=== PATIENT | male | born 1990 | race Caucasian/White ===

== ENCOUNTER → 2021-08-21 11:37 | Outpatient (BNVA) | payer SELFPAY | PROVIDERS: Visit Provider Nurse Practitioner Family | DX: Z20.822 Contact with and (suspected) exposure to COVID-19 (principal) | CPT/HCPCS: 87635 ==

== ENCOUNTER → 2021-08-30 13:04 | Outpatient (BNVA) | payer BC, SELFPAY | PROVIDERS: Visit Provider Family Medicine | DX: Z20.822 Contact with and (suspected) exposure to COVID-19 (principal); U07.1 COVID-19 | CPT/HCPCS: 87635 ==

== ENCOUNTER 2021-09-03 07:52 | Emergency (ER) | payer BC, SELFPAY ==
[2021-09-03 08:15] VITALS: BP 147/91; PULSE 96; RESP 20; TEMP 36.7; O2SAT 97; BMI 25.7
[2021-09-03 08:32] VITALS: BP 147/91; PULSE 96; RESP 20; TEMP 36.7; O2SAT 97
--- NOTE | 2021-09-03 08:32 | W.ED.SKABFB ---
HPI - Skin/Abscess/Foreign Bdy General: Chief complaint: Allergic Reaction Stated complaint: COVID + Breaking out in a rash Time Seen by Provider: 09/03/21 07:59 History of Present Illness: Patient is a 30-year-old male comes to the ED with a pruritic rash. Patient was diagnosed with COVID-19 4 days ago. His Covid symptoms are improving. His main complaint is 2 days ago he started getting a pruritic rash that spread all over his body. Patient says approximately 3 days ago he took aspirin for the first time. His rash started within 24 hours after taking the aspirin. He said the rash first started on right thigh and then has spread throughout the rest of his body. Rash is on both legs arms torso neck and face. Patient says that his father had a similar reaction when he took aspirin. Denies any lip or tongue swelling or any shortness of breath. Denies nausea/vomiting or diarrhea. Associated symptoms: Deny chills, fever(s), nausea or vomiting Review of Systems Const: Denies: fever(s), chills or fatigue Eyes: Denies: change in vision or eye discomfort ENMT: Denies: throat pain, odynophagia, nasal discharge or nasal congestion Card: Denies: chest pain, palpitations, edema, swelling of feet/ankles, dyspnea on exertion or orthopnea Resp: Denies: dyspnea, productive cough or non-productive cough GI: Denies: abdominal pain, nausea, vomiting, diarrhea, constipation or hematochezia : Denies: flank pain, difficulty urinating, dysuria or hematuria Musc: Denies: neck pain, back pain or extremity swelling Skin/Breast: Reports: rash and pruritus; Denies: new lesions Neuro: Denies: headache(s), numbness in extremities or weakness in extremities PFS ED PFSH: Medical History No pertinent past medical history Surgical History No pertinent past surgical history Social History Smoking and tobacco status: never smoked Physical Exam Const: COMMON NORMALS: no acute distress, patient oriented x3 and alert GENERAL APPEARANCE: cooperative and comfortable HENMT: COMMON NORMALS: normocephalic HEAD & SCALP: normocephalic MOUTH: Normal oral and palatal mucosa present, lip normal and tongue normal THROAT: posterior oropharynx normal and uvula midline Neck/C-Spine: COMMON NORMALS: supple GENERAL: Yes normal visual inspection Resp: COMMON NORMALS: normal respiratory effort, No retractions, No use of accessory muscles and clear to auscultation bilaterally AUSCULTATION: clear to auscultation bilaterally Cardio: COMMON NORMALS: regular rate, regular rhythm, S1 normal heart sound present, S2 normal heart sound present, No gallops present (Cardio), No clicks present (Cardio), No murmurs present (Cardio) and Peripheral pulses 2+ throughout RATE: regular rate RHYTHM: regular rhythm HEART SOUNDS: S1 normal heart sound present and S2 normal heart sound present PERIPHERAL PULSES: Peripheral pulses 2+ throughout GI: COMMON NORMALS: Normal to inspection, nondistended, normoactive bowel sounds present, Soft to palpation, non-tender and no masses PALPATION: Yes Soft to palpation : COMMON NORMALS: Yes no CVA tenderness BLADDER/KIDNEY EXAM: Yes no CVA tenderness Back/Pelvis: COMMON NORMALS: no CVA tenderness Extremity: NARRATIVE EXTREMITY EXAM: Urticaria rash on both upper and lower extremities bilaterally. GENERAL: Yes normal exam except as noted Neuro: COMMON NORMALS: patient oriented x3 and moves all extremities SENSORIUM/ORIENTATION: Yes alert Skin: NARRATIVE SKIN EXAM: Urticaria rash on upper and lower extremities bilaterally, torso neck and face. GENERAL SKIN EXAM: dry skin Course Reevaluation(s): Reevaluation #1: After patient received IM Benadryl and Solu-Medrol his rash started to improve. Patient was stable and ready for discharge home. I told him I sent with prescription for prednisone. Patient understood agree with plan. Vital Signs: Vital signs: Vital Signs Temperature 98.1 F 09/03/21 08:32 Pulse Rate 94 09/03/21 09:42 Respiratory Rate 20 H 09/03/21 08:32 Blood Pressure 127/84 09/03/21 09:42 Pulse Oximetry 98 09/03/21 09:42 MDM - Skin/Abscess/Foreign Bdy Medicial Decision Making Patient is a 30-year-old male comes to the ED with rash. Rash started right after patient took aspirin for the first time. Denies any shortness of breath, lip or tongue swelling, nausea/vomiting or diarrhea. Rash is full body and a pruritic urticaria type rash. He states his father had similar reaction to aspirin when he took it. Patient was given IM Benadryl and Solu-Medrol here in the ED and his rash improved. Vitals are stable. Patient diagnosed with a drug induced urticaria discharged home with prescription for prednisone. He was told to also take [id number] Benadryl as well to help with symptoms. Follow-up with PCP in 3 to 5 days for reevaluation. Return to ED precautions given. Patient understood agree with plan. Discharge Plan Discharge Patient Disposition: Home Clinical Impression: Drug-induced urticaria Condition: Stable Prescriptions: New prednisone 20 mg tablet 20 mg PO BID 7 Days Qty: 14 0RF No Action prednisone 20 mg tablet 20 mg PO DAILY 5 Days Qty: 5 0RF doxycycline hyclate 100 mg capsule 100 mg PO BID 5 Days Qty: 10 0RF benzonatate [Tessalon Perles] 100 mg capsule 100 mg PO BID PRN (Reason: cough) 7 Days Qty: 14 0RF Discharge Orders: Discharge ED (Routine); Ordered 09/03/21 Ordered By: Kamaljit Alfaro Discharge Diet: Regular Discharge Activity: Resume usual activity Patient Instructions: Urticaria (ED) Activity Restrictions/Additional Instructions: Follow-up with medical provider as directed. Rash likely caused by allergy to aspirin, so I would not take anymore aspirin in the future. You can also take [id number] Benadryl 25 mg dose at night to help with symptoms as well. Medications as prescribed. Return to the ER or your medical provider if condition worsens. Please read and understand discharge instructions. Thank you for choosing [facility] for your healthcare needs today. Please realize this is an emergency room and that we are providing you with a medical screening exam and this may not be complete and all inclusive of all the testing and or work up that you may need to determine your ailment or severity of your illness. It is very important that you follow up as instructed or that you return to the Emergency Department should you have concerns or if your condition changes or worsens in any way. Stand Alone Forms: Work/School Release Coding Level of Care Code ED Aniline Press Worker for Wanda Drummond Exam Comprehensive
[2021-09-03] MEDS: diphenhydrAMINE 50 mg/mL SDV 1mL IM (08:53)
[2021-09-03 09:42] VITALS: BP 127/84; PULSE 94; O2SAT 98
== END 2021-09-03 09:42 | disposition home or self-care (01) ==
PROVIDERS: Emergency Provider Physician Assistant
DX: L50.0 Allergic urticaria (principal); T39.015A Adverse effect of aspirin, initial encounter
CPT/HCPCS: 96372; 99283; J1200; J2930

== ENCOUNTER 2024-02-25 07:43 | Emergency (ER) | payer BC, MEDICAID, SELFPAY ==
[2024-02-25 07:49] VITALS: BP 109/87; PULSE 73; RESP 18; TEMP 36.4; O2SAT 92
--- NOTE | 2024-02-25 07:58 | W.ED.SKABFB ---
HPI - Skin/Abscess/Foreign Bdy General: Chief complaint: Skin/Abscess/Foreign Body Stated complaint: face swlling/rash Time Seen by Provider: 02/25/24 07:51 History of Present Illness: 33-year-old male presents to the emergency room with a complaint of facial swelling and rash. Rash extends to his upper extremities and across his face. He thinks it is from cleaning products he used the night prior to the onset of the rash. He uses while at work. He has previously never had any kind of reactions. He is known allergy to aspirin but is not taking any NSAID recently. No difficulty breathing. Associated symptoms: Deny chills or fever(s) Review of Systems Const: Denies: fever(s) or chills Card: Denies: chest pain Resp: Denies: dyspnea GI: Denies: abdominal pain : Denies: dysuria, urinary frequency or urinary urgency Musc: Denies: neck pain or back pain Skin/Breast: Reports: rash and erythema PFS ED PFSH: Medical History No pertinent past medical history Surgical History No pertinent past surgical history Social History Smoking and tobacco/nicotine status: never used tobacco/nicotine Physical Exam Const: COMMON NORMALS: no acute distress GENERAL APPEARANCE: cooperative and comfortable ORIENTATION/CONSCIOUSNESS: Yes awake, Yes oriented to person, Yes oriented to place and Yes oriented to time HENMT: COMMON NORMALS: normocephalic, atraumatic and hearing grossly normal bilaterally HEAD & SCALP: normocephalic and atraumatic Resp: COMMON NORMALS: normal respiratory effort, No retractions, No use of accessory muscles and clear to auscultation bilaterally AUSCULTATION: clear to auscultation bilaterally Cardio: COMMON NORMALS: regular rate, regular rhythm and No murmurs present (Cardio) RATE: regular rate RHYTHM: regular rhythm GI: COMMON NORMALS: Soft to palpation and No hepatosplenomegaly present AUSCULTATION: Yes normoactive bowel sounds PALPATION: Yes Soft to palpation, No Tenderness to palpation present (GI), No Guarding due to palpation present (GI) and Yes No hepatosplenomegaly present Extremity: COMMON NORMALS: normal to inspection, capillary refill normal, no clubbing, cyanosis or edema, no calf tenderness and no pedal edema Neuro: SENSORIUM/ORIENTATION: Yes oriented to person, Yes oriented to place and Yes oriented to time Course Vital Signs: Vital signs: Vital Signs Temperature 97.6 F 02/25/24 07:49 Pulse Rate 74 02/25/24 09:41 Respiratory Rate 18 02/25/24 07:49 Blood Pressure 109/87 02/25/24 08:14 Pulse Oximetry 95 02/25/24 09:41 Oxygen Delivery Me thod Room Air 02/25/24 07:49 MDM - Skin/Abscess/Foreign Bdy Medicial Decision Making Patient allergic reaction to something but having some facial swelling no respiratory difficulty no swelling in the oropharynx. He is improved after steroids and antihistamines. Discharge patient home on cetirizine 10 mg twice daily for 7 days and also have him do a steroid taper start this evening. Recheck if has any worsening symptoms. Lab Data I reviewed the patient's lab results. No radiology studies performed this visit Discharge Plan Discharge Patient Disposition: Home Clinical Impression: Contact dermatitis Condition: Stable Prescriptions: New prednisone 20 mg tablet 20 mg PO TID Qty: 15 0RF Rx Instructions: 1 p.o. 3 times daily x3 days, 1 p.o. twice daily x2 days, 1 p.o. daily x2 days cetirizine 10 mg tablet 10 mg PO BID Qty: 14 0RF Discontinued prednisone 20 mg tablet 20 mg PO DAILY 5 Days Qty: 5 0RF No Action doxycycline hyclate 100 mg capsule 100 mg PO BID 5 Days Qty: 10 0RF benzonatate [Tessalon Perles] 100 mg capsule 100 mg PO BID PRN (Reason: cough) 7 Days Qty: 14 0RF Discharge Orders: Discharge ED (Routine); Ordered 02/25/24 Ordered By: Arash Kirkpatrick Discharge Diet: Usual diet Discharge Activity: Resume usual activity Patient Instructions: General Allergic Reaction (ED), Opioid Safety, Pain Management Activity Restrictions/Additional Instructions: Thank you for choosing [facility] for your healthcare needs today. It is very important that you follow up as instructed or that you return to the Emergency Department should you have concerns or if your condition changes or worsens in any way. Stand Alone Forms: Work/School Release Coding Level of Care Code ED Registered Nurses for Wanda Drummond
[2024-02-25] MEDS: diphenhydrAMINE 50 mg/mL SDV 1mL IVP (08:06)
[2024-02-25] MEDS: methylPREDNISolone sod succ 125 mg/2 mL INJ IVP (08:06)
[2024-02-25] MEDS: famotidine 20 mg/2 mL INJ 40 MG IVP (08:07)
[2024-02-25 08:14] VITALS: BP 109/87; O2SAT 96
[2024-02-25 09:41] VITALS: PULSE 74; O2SAT 95
== END 2024-02-25 09:44 | disposition home or self-care (01) ==
PROVIDERS: Emergency Provider Family Medicine
DX: L25.9 Unspecified contact dermatitis, unspecified cause (principal)
CPT/HCPCS: 96374; 96375; 99284; J1200; J2919; J3490

== ENCOUNTER 2025-02-15 16:56 | Emergency (ER) | payer BC, MEDICAID, SELFPAY ==
[2025-02-15 16:57] VITALS: BP 132/87; PULSE 73; RESP 16; TEMP 36.6; O2SAT 99
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
== END 2025-02-15 17:41 | disposition home or self-care (01) ==
PROVIDERS: Emergency Provider Physician Assistant
DX: L55.0 Sunburn of first degree (principal)
CPT/HCPCS: 99282